=== PATIENT | male | born 1960 | race Caucasian/White ===

== ENCOUNTER 2024-03-17 17:17 | Observation (INO) | payer BC, SELFPAY ==
[2024-03-17 11:20] VITALS: BP 151/84
[2024-03-17 11:37] VITALS: BMI 33.4
[2024-03-17 11:55] LABS: % Basophils 0.3 % (0-2); % Eosinophils 0.9 % (0-6); % Immature Granulocytes 0.3 % (0-0.5); % Lymphocytes 19.1 % (20.5-51.1); % Monocytes 9.7 % (1.7-9.3); % Neutrophils 69.7 % (42.2-75.2); Absolute Eosinophils 0.1 10^3/uL (0-0.7); Absolute Lymphocytes 2.3 10^3/uL (1.2-3.4); Absolute Monocytes 1.2 10^3/uL (0.1-0.6); Absolute Neutrophils 8.4 10^3/uL (1.4-6.5); Hematocrit 38.5 % (39.0-52.0); Hemoglobin 13.2 g/dL (13.0-18.0); Mean Corp Hgb Conc. 34.3 g/dL (33.0-37.0); Mean Corpuscular Hgb 33.2 pg (27.0-31.0); Mean Corpuscular Volume 96.7 fL (80.0-94.0); Mean Platelet Volume 11.1 fL (7.4-10.4); Nucleated Red Blood Cells % 0 % (-); Platelet Count 163 10^3/uL (130-400); Red Blood Cell Count 3.98 10^6/uL (4.70-6.10); Red Cell Dist. Width 12.6 % (11.5-14.5); White Blood Cell Count 12.1 10^3/uL (4.8-10.8)
[2024-03-17 12:04] LABS: Urine Albumin Negative (Neg - Trace); Urine Bilirubin Negative (Negative); Urine Character Clear (Clear); Urine Color Yellow; Urine Glucose Negative (Negative); Urine Ketone Negative (Negative); Urine Leukocyte Negative (Negative); Urine Nitrite Negative (Negative); Urine Occult Blood Negative (Negative); Urine Urobilinogen Negative (Neg - 1+)
[2024-03-17 12:06] LABS: ALT (SGPT) 37 U/L (0-50); AST (SGOT) 24 U/L (17-59); Albumin 4.3 g/dl (3.5-5.0); Alkaline Phosphatase 53 U/L (38-126); Blood Urea Nitrogen 12 mg/dl (9-20); Carbon Dioxide 26 mmol/L (22-30); Chloride 103 mmol/L (98-107); Estimated Creatinine Clearance 114 ml/min; Glucose 164 mg/dl (70-99); Lipase 222 U/L (23-300); Potassium 4.2 mmol/L (3.5-5.1); Sodium 138 mmol/L (135-145); Total Bilirubin 0.7 mg/dl (0.2-1.3); Total Protein 7.3 g/dl (6.3-8.2); eGFR > 60.00
[2024-03-17] MEDS: DILAUDID 1 MG IV ×3 (12:19→20:06)
[2024-03-17 12:30] VITALS: BP 145/76
[2024-03-17 12:57] LABS: Troponin I < 0.012 ng/ml
--- NOTE | 2024-03-17 13:20 | ED.GENMED ---
History of Present Illness
General
Chief Complaint: Abdominal Pain
Source: patient
Exam Limitations: none
Time Seen by Provider: 03/17/24 11:47
Nursing documentation reviewed up to this point in time: agreed with
Travel History
Have you had any contact with someone who has COVID-19?: No
Do you have any symptoms of coronavirus? Fever > 100 degrees, chills, cough, shortness of breath, sore throat, loss of taste or smell, muscle aches, or headache?: No
History of Present Illness
History of Present Illness:
63 Y/O M with htn
says after lunch he started having some discomfort RUQ to back, nausea, lack of appetite; says he didn't really want to eat dinner and then didn't eat breakfast today
pain is worse with lying flat, really feels it in his back
chills last night, no vomiting, diarrhea
last bm 2 days ago and normal
no chest pain or exertional symptoms
thought it was maybe indigestion so he took pepto last night
pain is moderate now 05/02
10 with lying back
Past History
Past History
ED Past Medical History: HTN
ED Past Surgical History: Orthopedic
Social History
Tobacco: Non-smoker
Alcohol: None
Drug: None
Personal:
Living: with family
Review of Systems
Review of Systems
Allergies reviewed?: Yes
All Other Systems: Not applicable
Phy Exam
Physical Exam
Physical Exam:
GENERAL: Alert , in no apparent distress
EYE: pupils equal and reactive
NECK: Supple
ENT: o/p clr, mmm.
CARDIAC: Regular rate and rhythm, no edema
LUNGS: Clear breath sounds bilaterally, no acute respiratory distress, no wheezes/rales/rhonchi
ABDOMEN: Soft, without focal tenderness, no r/g, no cvat, normal bowel sounds
mild upper abd tendenress, neg augustus's sign, no back tenderness;
NEUROLOGICAL: Alert and oriented, no focal neuro deficits
SKIN: Warm and dry, skin intact.
MUSCULOSKELETAL: No edema, well perfused. neg berhane's sign
PSYCH: Normal and appropriate interaction.
Course
Orders/Labs/Results
Orders:
Orders
03/17/24 11:13
ECG [Electrocardiogram (*1)] Urgent
Reason for Study: Chest Pain
EKG- Treatment ONCE
03/17/24 11:46
Complete Blood Count/With Diff Urgent
Comprehensive Metabolic Panel Urgent
Lipase Urgent
Urinalysis Reflex To Culture Urgent
Date Specimen was Collected: 03/17/24
Time Specimen was Collected: 11:44
03/17/24 12:11
HYDROmorphone [Dilaudid] 1 mg IV NOW STA
US Abdomen Complete/Upper Urgent
Comment:
Reason For Exam: RUQ PAIN TO BACK
03/17/24 12:21
Troponin I Urgent
Abnormal Lab Results
03/17/24
11:46
WBC 12.1 H 10^3/uL
(4.8-10.8)
RBC 3.98 L 10^6/uL
(4.70-6.10)
Hct 38.5 L %
(39.0-52.0)
MCV 96.7 H fL
(80.0-94.0)
MCH 33.2 H pg
(27.0-31.0)
MPV 11.1 H fL
(7.4-10.4)
Absolute Neuts (auto) 8.4 H 10^3/uL
(1.4-6.5)
Absolute Monos (auto) 1.2 H 10^3/uL
(0.1-0.6)
Lymphocytes % 19.1 L %
(20.5-51.1)
Monocytes % 9.7 H %
(1.7-9.3)
Glucose 164 H mg/dl
(70-99)
03/17/24 11:46
03/17/24 11:46
Vital Signs
Initial and Last Documented VS:
Initial Vital Signs
Temp Pulse Resp BP Pulse Ox
98.6 F 104 16 151/84 98
03/17/24 11:20 03/17/24 11:20 03/17/24 11:20 03/17/24 11:20 03/17/24 11:20
Last Documented Vital Signs
Temp Pulse Resp BP Pulse Ox
98.6 F 75 18 145/76 97
03/17/24 11:20 03/17/24 12:30 03/17/24 12:30 03/17/24 12:30 03/17/24 12:30
MDM/Problems Addressed
MDM/Problems Addressed:
celestine sevilla 63 y/o M with htn
mid afternoon started with RUQ pain to back, nausea, lack of appetite, chills:
vitals stable, neg chang's sign but mild discomfort on exam no rebound, no lower abd tendernses, no back tenderness
ekg and trop neg
, wbc 12, normal lfts/lipase, US shows cholelithiasis with sludge, gb wall not thick, and cbd is 0.7cm;
pt felt better after dilaudid
d/w dr. armstrong surgery, who recomended po trial and if tolerated, d/c home for outpatient elective bekah
pt ate chicken salad and within about 1 hour had pain return and doesn't feel comfortable going home.
admit to surgery
*Critical Care Note
Total Time (30-74mins, 75-104mins- exclusive of procedures): Not Applicable
ED Attending Note
-
Portions of this chart may have been created with voice recognition software.� Occasional wrong word or��sound alike� substitutions may have occurred due to the inherent limitations of voice recognition software.
Discharge Plan
Departure
Patient Disposition: Admit
Date of Disposition: 03/17/24
Time of Disposition: 14:54
Admit to: Med/Surg
Presentation/result/management discussed w/ accepting MD/DO: Hospitalist
Condition: Fair
Covid-19: Not Applicable
Discharge Problem:
Symptomatic cholelithiasis
Prescriptions:
No Action
epinephrine [EpiPen 2-Oseas] 0.3 MG/0.3 ML auto-injector
0.3 mg IJ UD Qty: 1 0RF
Referrals:
Jt Harvey MD [Family Provider] -
Interventions
Interventions:
*Risk Screen - Suicide Last Done: 03/17/24 11:20
*General Assessment Last Done: 03/17/24 11:20
*Neglect/Abuse Screening Last Done: 03/17/24 11:20
ED- Fall Risk Assessment Last Done: 03/17/24 11:54
*ED COVID-19 Vaccine History Last Done: 03/17/24 11:37
BG-Nydxaz-Lkvmwmxfqv Assessment Last Done: 03/17/24 11:54
Discharge Date and Time
Print Language: [place]
[2024-03-17 15:30] VITALS: BP 126/61
--- NOTE | 2024-03-17 16:36 | HPS.HSE ---
Addendum entered and electronically signed by Shahab Solomon MD 03/18/24 19:22:
I saw and examined the patient.
The Telephone Sex Worker's note was reviewed and I agree with the note.
Comment: Persistent RUQ pain for 2 days despite analgesics. TTP to RUQ on exam. OCTOR for lap bekah. 2g cefotetan preop.
Original Note:
Family Physician
-
Family Physician: Jt Harvey
Chief Complaint
-
Abdominal pain
History of Present Illness
Mr Sheehan is a 63 yo male with a h/o HTN, pre diabetes (A1c of 6.0), and prior orthopedic surgeries who presents through the ED with RUQ/epigastric pain which began yesterday after eating a large salad. He had dinner as usual followed by ice cream
which worsened his pain. Pain persisted despite trying multiple over the counter agents including multiple doses of ibuprofen, Tums and Pepto Bismol. He was unable to sleep well overnight due to pain and nausea although he notes no vomiting. He
reports feeling hot then chilled for about an hour as well. He had ice cream again today as he was hoping dairy would relieve his symptoms but unfortunately, his symptoms worsened causing him to present for evaluation. He received IV Dilaudid just
prior to my evaluation which limited exam. Grossly non-tender to palpation. No active complaints of nausea.
Medical History
Past Medical History
Past Medical History: Reports HTN and Other (prediabetic)
Past Surgical History: Reports Orthopedic (right meniscus and left ankle arthroscopy)
Social History
Tobacco: Non-smoker
Alcohol: Occasional
Personal:
Living: With Family
Family History
Family History: Not pertinent
Allergies / Home Medications
Allergies reflects when Allergies were last updated in [facility].
Home Medications with original date entered in [facility]
Allergy/Medication List:
Patient Allergies
Allergy/AdvReac Type Severity Reaction Status Date / Time
NKA - No Known Allergies Allergy Unknown Uncoded 03/17/24 11:20
NOT.[id number] - Not Allergy Unknown Uncoded 03/17/24 11:20
Converted 9. See Text.
�Medication �Instructions �Recorded �Confirmed �Type
bismuth subsalicylate 262 mg/15 mL 524 mg PO DAILYPRN PRN gerd 03/17/24 03/17/24 History
oral suspension (Pepto-Bismol)
calcium carbonate (Tums) 200 mg PO BIDPRN PRN gerd 03/17/24 03/17/24 History
ibuprofen 200 mg tablet (Advil) 200 mg PO Q6HPRN PRN mild pain 03/17/24 03/17/24 History
lisinopril 20 mg tablet 20 mg PO DAILY 03/17/24 03/17/24 History
qandbwlr-kfh-gbpsl 200 mcg-lycop 1 tab PO DAILY 03/17/24 03/17/24 History
175 mcg-lutei 250 mcg-herb 178
tablet (Rober Multivitamin For Men)
saw palm 160 mg-vit E 100 1 tab PO DAILY 03/17/24 03/17/24 History
unit-selen 100
ecx-ykty-imcxrs-pygeum tablet
(Prostate Health)
Review of Systems
-
History Source: Patient and Family
A 12 point ROS was completed and negative except as noted: No
Physical Exam
Vital Signs
Vital Signs
Temp Pulse Resp BP Pulse Ox
98.6 F 75 18 145/76 97
03/17/24 11:20 03/17/24 12:30 03/17/24 12:30 03/17/24 12:30 03/17/24 12:30
Physical Exam
General: Well Developed, Well Nourished and No Apparent Distress
HEENT: NormoCephalic and Moist mucous membranes
Respiratory: Non Labored Respirations
GI: Soft, Non Tender and Non Distended
Skin: Warm and Dry
Neuro: Awake, Alert and AO x 3
Psych: Calm
Laboratory Results
-
03/17/24 11:46
03/17/24 11:46
Laboratory Results
Total Bilirubin 0.7 mg/dl (0.2-1.3) 03/17/24 11:46
AST 24 U/L (17-59) 03/17/24 11:46
ALT 37 U/L (0-50) 03/17/24 11:46
Alkaline Phosphatase 53 U/L (38-126) 03/17/24 11:46
Troponin I < 0.012 ng/ml 03/17/24 12:21
Lipase 222 U/L (23-300) 03/17/24 11:46
Data Reviewed
-
Diagnostic Radiology: Image Personally Visualized and interpreted, Report Reviewed by me, Discussed with Physician, Discussed with Nurse, Discussed with Patient and Discussed with Family
Lab Data: Labs Reviewed by me, Discussed with Physician, Discussed with Nurse, Discussed with Patient and Discussed with Family
Old Records: Reviewed
Impression/Plan
-
IMPRESSION:
63 yo pre-diabetic male with h/o htn presenting with biliary colic with persistent RUQ/epigastric pain over the last 24 hours after fatty foods. US imaging without cholecystitis noted although cholelithiasis present. Exam done just after pain
medication, without abdominal tenderness currently noted. AFVSS. Mild leukocytosis. LFT's normal.
PLAN:
OK for clear liquids tonight, will make NPO after MN
Continue analgesics/antiemetics with Tylenol 650mg & dilaudid 0.5/1mg prn. Zofran 4mg prn. Hold on further NSAIDs given repeat dosing at home
Follow labs/exams
IVF with NSS at 80ml/hr
If pain persists overnight, will plan laparoscopic cholecystectomy in am. If pain resolves, will advance diet and d/c if tolerating.
SCD's for VTE ppx
[2024-03-17] MEDS: NSS 1000 IV (18:00)
[2024-03-17 18:12] VITALS: BMI 33.2
--- NOTE | 2024-03-17 18:24 | PTCARENOTE ---
Patient admitted from emergency with biliary colic.He will have a laparoscopic cholecystectomy tomorrow.Patient rates his pain at a 2 out of 10.Vital signs are stable.Patient is in the bed with the call del cid in reach.
[2024-03-17 18:25] VITALS: BP 145/79
[2024-03-17 23:31] VITALS: BP 139/71
[2024-03-18] VITALS (10 sets, daily range): BP systolic 110–164; BP diastolic 56–86
[2024-03-18] MEDS: DILAUDID 1 MG IV ×2 (00:08→21:30)
[2024-03-18] MEDS: DILAUDID 0.5 MG IV ×3 (05:30→16:09)
[2024-03-18] MEDS: NSS 1000 IV ×2 (05:31→18:18)
[2024-03-18 06:20] LABS: Hematocrit 36.6 % (39.0-52.0); Hemoglobin 12.7 g/dL (13.0-18.0); Mean Corp Hgb Conc. 34.7 g/dL (33.0-37.0); Mean Corpuscular Hgb 33.2 pg (27.0-31.0); Mean Corpuscular Volume 95.6 fL (80.0-94.0); Mean Platelet Volume 11.3 fL (7.4-10.4); Platelet Count 146 10^3/uL (130-400); Red Blood Cell Count 3.83 10^6/uL (4.70-6.10); Red Cell Dist. Width 12.5 % (11.5-14.5); White Blood Cell Count 11.7 10^3/uL (4.8-10.8)
[2024-03-18 06:43] LABS: ALT (SGPT) 31 U/L (0-50); AST (SGOT) 22 U/L (17-59); Alkaline Phosphatase 47 U/L (38-126); Blood Urea Nitrogen 12 mg/dl (9-20); Carbon Dioxide 24 mmol/L (22-30); Chloride 103 mmol/L (98-107); Estimated Creatinine Clearance > 125 ml/min; Glucose 164 mg/dl (70-99); Sodium 137 mmol/L (135-145); Total Bilirubin 0.8 mg/dl (0.2-1.3); Total Protein 6.9 g/dl (6.3-8.2); eGFR > 60.00
[2024-03-18] MEDS: ZESTRIL 20 MG PO (07:24)
--- NOTE | 2024-03-18 12:41 | PTCARENOTE ---
Pt to sx
--- NOTE | 2024-03-18 15:20 | SUR.PHASEI ---
Rec'd sleepy in bed with HOB elevated low fowlers, oriented x 3 by RN , postioned for comfort, no c/o at present
--- NOTE | 2024-03-18 15:38 | SUR.PHASEI ---
More alert, c/o R mid quad pain, reassured, medicated roderick well, Dr Solomon in
--- NOTE | 2024-03-18 15:48 | SUR.PHASEI ---
More alert, some pain persists, rr 6 at times, encouraged to breath
--- NOTE | 2024-03-18 16:03 | SUR.PHASEI ---
Report to Jena
--- NOTE | 2024-03-18 17:27 | PTCARENOTE ---
1620. Pt return to floor 4 lap sites. On 2l nc. AO pain level 5. RAC 20g 80ml NSS. Family in room. LF diet ordered.
[2024-03-18] MEDS: STERILE WATER FOR INJECTION 10 ML IV (18:19)
--- NOTE | 2024-03-18 19:18 | CM ---
met with patient and his at bedside.patient riky with his in [facility] with 1 felicia,his bed and bath is on the first level,he amb i,is i with his adl's.his bed and bath is on second level.his pcp is dr hernandez and he uses [facility] [address]
[facility] in [place].he has nver had a vn or been to ip rehab.
patient with a hx of htn,prediabes is adm with biliary colic.he is sp lap bekah.no home care needs anticipated.Plan home with no needs.
--- NOTE | 2024-03-18 19:24 | OR.RPT ---
Operative Report
Operative Report
Primary Surgeon: Juanito
Pre-op Diagnosis: Acute calculous cholecystitis
Post-op Diagnosis: Same
Procedure Performed: Laparoscopic cholecystectomy
Anesthesia Type: GETA
Specimen / Cultures: Gallbladder
Estimated Blood Loss: 25cc
Complications: None immediate
Operative Findings: Severely inflamed thickened gallbladder with large impacted stone at infundibulum. Some spillage of thick brown dark bile and small pigmented stones, retrieved as many as possible.
Date of Surgery: 03/18/24
Indications: This 63M developed right upper quadrant/epigastric pain and on workup was found to have acute cholecystitis with normal LFTs and a normal common duct. Laparoscopic cholecystectomy was elected.
Description of procedure: The patient was placed on the operating table in the supine position. General anesthesia was induced. A time-out was completed verifying correct patient, procedure, site, positioning, and special equipment prior to
beginning this procedure. An orogastric tube was placed. The abdomen was prepped and draped in the usual sterile fashion. A stab incision was made in left upper quadrant and the Veress needle was inserted. Proper position was confirmed by aspiration
and saline meniscus test. The abdomen was insufflated with carbon dioxide to a pressure of 12 mmHg. The patient tolerated insufflation well.
A 5mm optical trocar was then inserted at the umbilicus. The laparoscope was inserted and the abdomen inspected. No injuries from initial trocar placement or Veress needle insertion were noted. Additional trocars were then inserted in the following
locations: a 12-mm trocar in the right epigastrium and two 5-mm trocars along the right costal margin. The abdomen was inspected and no abnormalities were found. The table was placed in the reverse Trendelenburg position with the right side up. The
dome of the gallbladder was grasped with an atraumatic grasper and retracted over the dome of the liver. It ruptured and spilled dark brown viscous bile and several small pigemtned stones. This was irrigated and suctioned and stones were retrieved
to the extent possible. The infundibulum was then grasped with an atraumatic grasper and retracted toward the right lower quadrant. This maneuver exposed Calot�s triangle. The peritoneum overlying the gallbladder infundibulum was then incised and
the cystic duct and cystic artery identified and circumferentially dissected so that a clear view of the liver was achieved through a window between the cystic duct an cystic artery. At this time, the only two structures going into the gallbladder
were the cystic artery and cystic duct.The infundibulum was extremely friable and oozed blood.
The cystic duct and cystic artery were then doubly clipped and divided close to the gallbladder. The gallbladder was then dissected from its peritoneal attachments by electrocautery. Hemostasis was assured and the gallbladder and contained stones
were removed using an endoscopic retrieval bag placed through the subxiphoid port. The gallbladder was passed off the table as a specimen. The gallbladder fossa was copiously irrigated with saline and hemostasis was again assured. There was no
evidence of bleeding from the gallbladder fossa or cystic artery or leakage of the bile from the cystic duct stump. The subxiphoid trocar site was closed at the fascial level laparoscopically with 2-0 PDS. Secondary trocars were removed under direct
vision and noted to be hemostatic. The laparoscope was withdrawn and the umbilical trocar removed. The abdomen was allowed to collapse. The skin was closed with subcuticular sutures of 4-0 monocryl and topical skin adhesive. The orogastric tube was
removed.
The patient tolerated the procedure well and was taken to the postanesthesia care unit in stable condition.
[2024-03-18] MEDS: TYLENOL 650 MG PO (20:54)
[2024-03-18] MEDS: FLUSH (NSS) 2 FLUSH IV (21:33)
[2024-03-19] MEDS: NSS IV (06:01)
[2024-03-19 07:30] VITALS: BP 138/77
[2024-03-19] MEDS: ZESTRIL 20 MG PO (07:32)
[2024-03-19] MEDS: TYLENOL 650 MG PO (09:03)
--- NOTE | 2024-03-19 09:27 | W.PN.GS2 ---
Addendum entered and electronically signed by Luis Manuel Bobo MD 03/19/24 09:51:
I saw and examined the patient independently.
The resident 's note was reviewed and I agree with the note, assessment and plan except where noted below.
Comment: 63-year-old male postoperative day 1 from a laparoscopic cholecystectomy. Doing well, expected postoperative course.
Will discharge home today. All questions answered.
Discharge instructions updated and patient to follow-up with Dr. Solomon in 2 to 3 weeks.
Original Note:
Today's Communication / Plan
-
Discharge home
Assessment / Plan
-
Assessment:
63-year-old male s/p laparoscopic cholecystectomy POD 1.
Plan:
Was seen and examined with no acute complaints.
Patient is afebrile, with vital signs stable.
RUQ pain resolved, stable and recovering well, tolerating diet, bowel function returned and passing flatus.
Incision sites looks normal, no erythema with minimal pain.
Discharge home.
Subjective Data
-
Date of Service: March 19, 2024
Objective Data
-
Intake and Output
03/18/24 03/19/24 03/20/24
06:59 06:59 06:59
Intake Total 1810 / 1810 2270 / 2270
Balance 1810 / 1810 2270 / 2270
Intake:
Oral fluids 850 / 850 1430 / 1430
IV fluids (Total) 960 / 960 840 / 840
Normosol 200 / 200
Other:
Number of approximated MODERATE 2
amounts of urine
Number of approximated LARGE 3 1
amounts of urine
Vital Signs
Temp Pulse Resp BP Pulse Ox
98.6 F 67 18 138/77 95
03/19/24 07:30 03/19/24 07:30 03/19/24 07:30 03/19/24 07:32 03/19/24 07:30
Lab Results
03/18/24 05:40
03/18/24 05:40
Calcium 9.0 mg/dl (8.4-10.2) 03/18/24 05:40
Total Bilirubin 0.8 mg/dl (0.2-1.3) 03/18/24 05:40
AST 22 U/L (17-59) 03/18/24 05:40
ALT 31 U/L (0-50) 03/18/24 05:40
Alkaline Phosphatase 47 U/L (38-126) 03/18/24 05:40
Total Protein 6.9 g/dl (6.3-8.2) 03/18/24 05:40
Albumin 4.0 g/dl (3.5-5.0) 03/18/24 05:40
Physical Exam
-
General: Awake, alert and oriented x3, not in distress and holds appropriate conversation.
Gastrointestinal: Soft, nontender, incisions sites look good with no guarding or rigidity.
Skin: Warm and dry.
--- NOTE | 2024-03-23 10:36 | W.DCSUMMARY ---
Discharge Summary
Discharge Data
Date of Admission: 03/17/24
Date of Discharge: 03/19/24
-
Pending Results: No
Hospital Course
Mr. Sheehan presented through the ED with complaints of RUQ pain for >24 hours. Initial US imaging with cholelithiasis but without gallbladder wall thickening. Pain persisted and he was, therefore, taken to the OR for laparoscopic assisted
cholecystectomy with severely inflamed thickened gallbladder with large impacted stone at infundibulum noted intraop. He did well post procedure and was discharged the following day after diet was tolerated and pain well controlled. Outpatient
follow up planned in the coming week.
Discharge Plan
-
Patient Disposition: Home (Routine Discharge)
Discharge Diagnosis/Procedures: Acute cholecystitis status post laparoscopic cholecystectomy
Condition: Good
Diet: As tolerated and Low Fat
Additional Diets: If you notice loose stools after surgery, eat a low fat diet
Activity: No strenuous activity
Additional Activity: Do not lift over 10-15 pounds for the next 3-4 weeks
Driving Restrictions: No driving for 24 hours
Bathing Restrictions: OK to Shower
Wound Care: Ok to shower and wash incisions gently with soap and water. Avoid picking or scrubbing off the glue. It will flake off on its own in 2-3 weeks.
Activity Restrictions/Additional Instructions:
Call your surgeon if you have fevers >100.5, nausea and vomiting, or worsening abdominal pain
Referrals:
Jt Harvey MD [Family Provider] -
Shahab Solomon MD [Active] - in two to three weeks
Prescriptions:
New
oxycodone 5 mg tablet
5 - 10 mg PO Q4HPRN PRN (Reason: moderate to severe pain) Qty: 16 0RF
Continued
lisinopril 20 mg Tablet
20 mg PO DAILY
bismuth subsalicylate [Pepto-Bismol] 262 mg/15 mL Suspension
524 mg PO DAILYPRN PRN (Reason: gerd)
calcium carbonate [Tums] 200 mg calcium (500 mg) Tablet,Chewable
200 mg PO BIDPRN PRN (Reason: gerd)
ibuprofen [Advil] 200 mg Tablet
200 mg PO Q6HPRN PRN (Reason: mild pain)
Rober Multivitamin For Men 200-175-250 mcg Tablet
1 tab PO DAILY
Prostate Health 160-100-100 mg-unit-mcg Tablet
1 tab PO DAILY
Discharge Orders:
Discharge Patient (As Directed); Ordered 03/19/24
Ordered By: Luis Manuel Bobo
Discharge Date and Time
Discharge Date/Time: 03/19/24 10:07
Print Language: TAJIK
== END 2024-03-19 10:07 | disposition home or self-care (01) ==
LOC: 2 SOUTH 17:17
PROVIDERS: Physician Assistant; Registered Nurse; ADMITTING PHYSICIAN Surgery; EMERGENCY PHYSICIAN Emergency Medicine; FAMILY PHYSICIAN Family Medicine
DX: K80.00 Calculus of gallbladder with acute cholecystitis without obstruction (principal); R10.11 Right upper quadrant pain; I10 Essential (primary) hypertension; R11.0 Nausea; M54.9 Dorsalgia, unspecified; R07.9 Chest pain, unspecified; R63.0 Anorexia; R68.83 Chills (without fever); R73.03 Prediabetes; R10.13 Epigastric pain; K76.0 Fatty (change of) liver, not elsewhere classified; R16.0 Hepatomegaly, not elsewhere classified
CPT/HCPCS: 47562; 88304; 76700; 80053; 81003; 83690; 84484; 85025; 85027; 93005; 96374; 96376; 99285; G0378